=== PATIENT | female | born 2005 ===

== ENCOUNTER 2025-01-01 22:03 | Emergency (ER) | payer SELFPAY ==
[2025-01-01 23:11] VITALS: BP 134/82; PULSE 82; RESP 16; TEMP 36.8; O2SAT 96
--- NOTE | 2025-01-01 23:30 | XR_ITS ---
Examination: CT maxillofacial, without intravenous contrast. 2-D sagittal reconstructions. 3-D reconstructions. Date and time of exam:04/03/2025 1143 hours INDICATIONS: Patient fell today with injury to the face, facial pain CTDI: vol (mGy):24 DLP: (mGycm):402 Technique: Multiple axial images of maxillofacial region, 3.0 mm slice thickness. 2-D sagittal and coronal reconstructions. 3-D reconstructions. Low dose protocols were performed. One or more of the following dose reduction techniques were used; automated exposure control, adjustment of the mA and/or KV according to patient size, use of iterative reconstruction technique. Findings: Frontal bone frontal sinuses intact Orbital rims are intact No nasal bone fracture No depression zygomatic arches Pterygoid plates maxilla and the mandible is intact IMPRESSION: No acute fracture.
--- NOTE | 2025-01-02 03:31 | PD.EDEPIST ---
ED Epistaxis RME/HPI General Chief complaint: Epistaxis/Nasal Foreign Body Stated complaint: HIT NOSE ON TOILET SEAT WHEN BENDING DOWN Time Seen by Provider: 01/01/25 23:30 Arrival date/time: 01/01/25 22:03 19F with no significant PMH presents to ED with nosebleed/pain after she accidentally hit her nose on the toilet top. Limitations: no limitations Related Data Allergies Allergy/AdvReac Type Severity Reaction Status Date / Time No Known Allergies Allergy Verified 01/01/25 22:04 Review of Systems Review of Systems Systems Reviewed: All systems reviewed, normal except as documented Constitutional Constitutional: Reports system reviewed and no additional complaints, except as documented, Denies fever(s) and Denies headache(s) ENT Ears, Nose, Mouth, and Throat: Reports as per HPI, Denies disequilibrium, Reports epistaxis and Denies headache(s) Cardiovascular Cardiovascular: Reports system reviewed and no additional complaints, except as documented, Denies chest pain and Denies dyspnea Respiratory Respiratory: Reports system reviewed and no additional complaints, except as documented, Denies cough and Denies dyspnea Gastrointestinal Gastrointestinal: Reports system reviewed and no additional complaints, except as documented, Denies abdominal pain, Denies nausea and Denies vomiting Neurologic Neurologic: Reports system reviewed and no additional complaints, except as documented, Denies confusion, Denies disequilibrium and Denies headache(s) Psychiatric Psychiatric: Denies confusion Past Medical History Social History SMOKING STATUS: Never smoker ED Exam General Limitations: Present no limitations General appearance: Present alert and in no apparent distress Head Head exam: Present atraumatic Eye Eye exam: Present normal appearance, PERRL and EOMI ENT ENT exam: Present normal oropharynx and mucous membranes moist Expanded ENT Exam Nose exam: Present other (mild tenderness/swelling); Absent septal hematoma Nasal speculum exam: Bilateral: epistaxis (dried) Neck Neck exam: Present normal inspection, full ROM and trachea midline Chest Chest inspection: Present normal inspection and symmetric chest wall rise Respiratory Respiratory exam: Present normal lung sounds bilaterally Cardiovascular Cardiovascular exam: Present regular rate, normal rhythm and normal heart sounds Abdominal Exam Abdominal exam: Present soft and normal bowel sounds Extremities Exam Extremities exam: Present normal inspection and full ROM Back Exam Back exam: Present normal inspection and full ROM Neurological Exam Neurological exam: Present alert, oriented X3 and CN II-XII intact Psychiatric Psychiatric exam: Present normal affect and normal mood Skin Skin exam: Present warm, dry, intact and normal color Course Quality Measures none Orders Category Date Time Status CT facial bones wo con Stat Exams 01/01/25 23:30 Completed Vital Signs Vital signs: Vital Signs Temperature 98.3 F 01/01/25 23:11 Pulse Rate 82 01/01/25 23:11 Respiratory Rate 16 01/01/25 23:11 Blood Pressure 134/82 H 01/01/25 23:11 Pulse Oximetry (%) 96 01/01/25 23:11 Oxygen Delivery Method Room Air 01/01/25 23:11 O2 at 96% on RA and WNLs Epistaxis MDM Narrative MDM Narrative:: 19F with no significant PMH presents to ED with nosebleed/pain after she accidentally hit her nose on the toilet top Physical exam reveals some nasal swelling and tenderness. Some dried blood in nares. Patient is afebrile, calm, and alert. CT no fx. Patient data External records reviewed:: [facility] [place] previous records Clinical information provided by:: patient Social determinants that could affect healthcare access:: none Patient has the following chronic illnesses:: none How is presenting disease/condition affected by chronic disease/condition?: no chronic disease Evaluation data The following diagnostics were reviewed and interpreted by me:: radiology exam(s) Lab and/or radiology exams considered but not ordered:: ordered Interpretation Summary: above Medications / Prescriptions Medications or Prescriptions considered but not ordered:: not ordered Medication administrations:: n/a Consultations Consultation(s) initiated? (list below): No Diagnosis Epistaxis Differential Diagnosis: nasal bone fracture, anterior epistaxis, posterior epistaxis and other (nose contusion) Most likely diagnosis given after review of the tests above:: epiastaxis and nose contusion Admission Indicated Admission indicated?: not indicated Admission Request Was there a request for admission?: No Disposition Plan Disposition Plan: Discharge Discharge Attestation Discharge Attestation: The patient and all family members were given an opportunity to ask questions and understood the discharge instructions. Discharge instructions specifically effects, indications for sooner follow up or return to the emergency department, and the expected course of current diagnosis. Patient condition: Stable Discharge Plan Plan Patient Disposition: HOME (Self Care) Discharge Disposition comment: Stable Problem List Clinical Impression: Epistaxis, Contusion of nose Patient/Caregiver Discharge Instructions Education Materials: ED Nasal Contusion Additional Instructions: Please follow-up with PCP within 24-48 hours and return immediately if symptoms worsen. Print Language: Yoruba Stand Alone Forms: Patient Portal Info Letter PA/ENROBER TENDER Supervising Physician PA/ENROBER TENDER Supervising Physician: Dr. Almanzar
== END 2025-01-02 00:20 | disposition home or self-care (01) ==
PROVIDERS: Emergency Provider Emergency Medicine
DX: S00.33XA Contusion of nose, initial encounter (principal); W22.8XXA Striking against or struck by other objects, initial encounter
CPT/HCPCS: 70486; 99284